=== PATIENT | female | born 1980 | race Hispanic/Latino ===

== ENCOUNTER 2020-11-23 16:35 | Emergency (ER) | payer BC ==
[2020-11-23 17:08] LABS: BASOPHILS % (AUTO) 0.4 % (0.0-5.0); EOSINOPHILS % (AUTO) 1.8 % (0.0-8.0); HEMATOCRIT 42.5 % (36-48); LYMPHOCYTES % (AUTO) 27.5 % (21.0-51.0); MEAN CORPUSCULAR HEMOGLOBIN 23.1 pg (27.0-33.0); MEAN CORPUSCULAR HGB CONC 30.6 g/dL (32.0-36.0); MEAN CORPUSCULAR VOLUME 75.6 fL (79-99); MONOCYTES % (AUTO) 8.4 % (3.0-13.0); NEUTROPHILS % (AUTO) 61.3 % (40.0-77.0); PLATELET COUNT (AUTO) 286 K/uL (130-400); RED BLOOD CELL COUNT(AUTO) 5.62 MIL/uL (4.00-5.50); RED CELL DISTRIBUTION WIDTH 17.2 % (11.0-15.5); WHITE BLOOD COUNT (AUTO) 8.2 K/uL (4.8-10.8)
[2020-11-23] MEDS ORDERED: MAGNESIUM CITRATE 296 ML SOLUTION ONE (17:08)
[2020-11-23 17:32] LABS: ALBUMIN 3.9 g/dL (3.5-5.0); BILIRUBIN,TOTAL 0.5 mg/dL (0.2-1.0); CREATININE 0.6 mg/dL (0.5-1.5); POTASSIUM 3.4 mmol/L (3.5-5.1); TOTAL PROTEIN, SERUM 8.4 g/dL (6.0-8.3)
[2020-11-23] MEDS ORDERED: LIDOCAINE HCL 2% JELLY 5 ML ONE (18:45)
[2020-11-26] MEDS ORDERED: EMPA10TA PO (13:17)
[2020-11-26] MEDS ORDERED: GLIP5TAB11 PO (13:17)
[2020-11-26] MEDS ORDERED: SITA1TAB6 PO (13:17)
[2020-11-26] MEDS ORDERED: HYDR25SU38 RC (13:17)
[2020-11-26] MEDS ORDERED: DOCU-116 PO (13:17)
[2020-11-26] MEDS ORDERED: LACT10SO32 PO (13:17)
== END 2020-11-23 18:51 | disposition home or self-care (01) ==
LOC: EDH 16:35
DX: K59.00 Constipation, unspecified (principal); E11.9 Type 2 diabetes mellitus without complications
CPT/HCPCS: 36415; 74021; 80053; 81025; 84484; 85025

== ENCOUNTER 2020-11-24 21:34 | Emergency (ER) | payer BC ==
[2020-11-24 22:24] LABS: BASOPHILS % (AUTO) 0.3 % (0.0-5.0); EOSINOPHILS % (AUTO) 0.1 % (0.0-8.0); HEMATOCRIT 45.3 % (36-48); LYMPHOCYTES % (AUTO) 3.4 % (21.0-51.0); MEAN CORPUSCULAR HEMOGLOBIN 23.5 pg (27.0-33.0); MEAN CORPUSCULAR HGB CONC 29.8 g/dL (32.0-36.0); MEAN CORPUSCULAR VOLUME 78.9 fL (79-99); MONOCYTES % (AUTO) 6.4 % (3.0-13.0); PLATELET COUNT (AUTO) 312 K/uL (130-400); RED BLOOD CELL COUNT(AUTO) 5.74 MIL/uL (4.00-5.50); RED CELL DISTRIBUTION WIDTH 18.2 % (11.0-15.5); WHITE BLOOD COUNT (AUTO) 17.2 K/uL (4.8-10.8)
[2020-11-24] MEDS ORDERED: METOCLOPRAMIDE 10 MG/2 ML VIAL ONE (22:24)
[2020-11-24] MEDS ORDERED: ONDANSETRON HCL 4 MG/2 ML VIAL ONE (22:24)
[2020-11-24] MEDS ORDERED: PANTOPRAZOLE 40 MG/VIAL ONE (22:24)
[2020-11-24] MEDS ORDERED: FAMOTIDINE/PF 20 MG/2 ML VIAL IV ONE (22:24)
[2020-11-24 22:38] LABS: ALBUMIN 3.9 g/dL (3.5-5.0); BILIRUBIN,TOTAL 0.5 mg/dL (0.2-1.0); CREATININE 0.8 mg/dL (0.5-1.5); POTASSIUM 3.7 mmol/L (3.5-5.1); TOTAL PROTEIN, SERUM 8.8 g/dL (6.0-8.3)
[2020-11-24] MEDS ORDERED: SODIUM CHLORIDE 0.9% 1000ML 1,000 ML IV ONE (23:41)
[2020-11-25] MEDS ORDERED: IOHEXOL 350 MG/ML 100ML INFUS..BTL IV ONE (00:01)
[2020-11-25] MEDS ORDERED: LACTULOSE 20 GM/30 ML UDCUP ONE (01:10)
[2020-11-25 01:43] LABS: APPEARANCE,URINE Clear (CLEAR); BILIRUBIN,URINE Negative (NEGATIVE); COLOR,URINE Yellow (YELLOW); GLUCOSE, URINE (UA) >=1000 mg/dL (NEGATIVE); KETONES,URINE >=160 mg/dL (NEGATIVE); LEUKOCYTE ESTERASE ,URINE Negative (NEGATIVE); NITRATE,URINE Negative (NEGATIVE); OCCULT BLOOD,URINE Trace (NEGATIVE); PROTEIN,URINE POS 1+ mg/dL (NEGATIVE); UROBILINOGEN,URINE 0.2 mg/dL (0.2-1.0)
[2020-11-25 01:48] LABS: BACTERIA,URINE None Seen /HPF (None Seen); RBC,URINE 0-1 /HPF (0-1); SQUAMOUS EPITHELIAL CELL,UR Rare /HPF (0-2); WBC,URINE None Seen /HPF (0-1); YEAST,URINE BUDDING None Seen /HPF (None Seen)
[2020-11-25 01:49] LABS: HYALINE CASTS, URINE 0-1 /LPF (0-1 /LPF)
[2020-11-26] MEDS ORDERED: GLIP5TAB11 PO (13:17)
[2020-11-26] MEDS ORDERED: EMPA10TA PO (13:17)
[2020-11-26] MEDS ORDERED: HYDR25SU38 RC (13:17)
[2020-11-26] MEDS ORDERED: DOCU-116 PO (13:17)
[2020-11-26] MEDS ORDERED: LACT10SO32 PO (13:17)
[2020-11-26] MEDS ORDERED: SITA1TAB6 PO (13:17)
== END 2020-11-25 02:34 | disposition home or self-care (01) ==
LOC: EDH 21:34
DX: K59.00 Constipation, unspecified (principal); E86.0 Dehydration; E11.9 Type 2 diabetes mellitus without complications
CPT/HCPCS: 36415; 74177; 80053; 81001; 83605; 83690; 85025; 96361; 96374; 96375; 99285; C9113; J2405; J2765; J3490; J7030; Q9967

== ENCOUNTER → 2023-08-24 | Outpatient (CLI) | payer BC ==
[~2023-08-24] MED LIST: DOCU-116 PO; EMPA10TA PO; GLIP5TAB15 PO; HYDR25SU38 RC; LACT10SO85 PO; SITA1TAB6 PO
== END | disposition home or self-care (01) ==
LOC: RAH 15:28
PROVIDERS: ATTEND Nurse Practitioner Family
DX: Z12.31 Encounter for screening mammogram for malignant neoplasm of breast (principal)
CPT/HCPCS: 77067